=== PATIENT | female | born 1995 | race Caucasian/White ===

== ENCOUNTER → 2017-10-12 | Outpatient (REF) | payer MEDICAID, SELFPAY ==
[2017-10-12 17:29] LABS: BASO # 0.1 10^3/uL (0.0-0.2); BASO % 0.6 % (0.0-1.0); EOS # 0.2 10^3/uL (0.0-0.50); EOS % 1.7 % (0.0-3.0); HEMATOCRIT 43.2 % (36.0-47.0); HEMOGLOBIN 14.1 g/dl (12.0-15.5); IMMATURE GRANULOCYTE % 0.4 % (0-3.0); LYMPH # 2.8 10^3/uL (1.5-6.5); MEAN CORPUSCULAR HGB CONC 32.6 g/dl (32.0-36.5); MEAN CORPUSCULAR VOLUME 88.7 fl (80.0-96.0); MONO # 0.8 10^3/uL (0.0-0.8); MONO % 7.8 % (0.0-5.0); NEUTROPHILS # 6.5 10^3/uL (1.8-7.7); NEUTROPHILS % 62.5 % (36.0-66.0); PLATELET COUNT, AUTOMATED 363 10^3/uL (150-450); RED BLOOD COUNT 4.87 10^6/uL (4.00-5.40); RED CELL DISTRIBUTION WIDTH 12.5 % (11.5-14.5); WHITE BLOOD COUNT 10.5 10^3/uL (4.0-10.0)
[2017-10-12 18:25] LABS: ALBUMIN 3.6 GM/DL (3.2-5.2); ALBUMIN/GLOBULIN RATIO 0.95 (1.00-1.93); ALKALINE PHOSPHATASE 105 U/L (45-117); ALT/SGPT 34 U/L (12-78); ANION GAP 6 MEQ/L (8-16); AST/SGOT 40 U/L (7-37); BILIRUBIN,TOTAL 0.3 MG/DL (0.2-1.0); BLOOD UREA NITROGEN 13 MG/DL (7-18); CALCIUM LEVEL 9.5 MG/DL (8.5-10.1); CARBON DIOXIDE LEVEL 28 MEQ/L (21-32); CHLORIDE LEVEL 107 MEQ/L (98-107); CREATININE FOR GFR 0.83 MG/DL (0.55-1.30); GLOMERULAR FILTRATION RATE > 60.0 (>60); GLUCOSE, FASTING 60 MG/DL (70-100); LIPASE 131 U/L (73-393); POTASSIUM SERUM 4.5 MEQ/L (3.5-5.1); SODIUM LEVEL 141 MEQ/L (136-145); TOTAL PROTEIN 7.4 GM/DL (6.4-8.2)
== END ==
LOC: M LAB REF 16:58
DX: R10.11 Right upper quadrant pain (principal)
CPT/HCPCS: 83690

== ENCOUNTER → 2017-10-19 | Outpatient (CLI) | payer MEDICAID | LOC: M RAD 14:32 | DX: N83.10 Corpus luteum cyst of ovary, unspecified side (principal) | CPT/HCPCS: 76856 ==

== ENCOUNTER → 2017-11-30 | Outpatient (CLI) | payer OTHER ==
[2017-11-30 19:09] LABS: LUTEINIZING HORMONE 3.7 mIU/mL; PROLACTIN 11.2 NG/ML
[2017-11-30 19:09] LABS: PROGESTERONE 1.2 NG/ML
[2017-11-30 19:10] LABS: FOLLICLE STIMULATING HORMONE 3.8 mIU/mL; FREE T4 0.81 NG/DL (0.76-1.46)
[2017-11-30 21:22] LABS: CHLAMYDIA DNA AMPLIFICATION NEGATIVE (NEGATIVE); GC DNA AMPLIFICATION POSITIVE (NEGATIVE)
== END ==
LOC: M SMT 13:56
DX: N93.8 Other specified abnormal uterine and vaginal bleeding (principal)
CPT/HCPCS: 83001

== ENCOUNTER → 2017-12-28 | Outpatient (REF) | payer OTHER, MEDICAID ==
[2017-12-28 19:12] LABS: CHLAMYDIA DNA AMPLIFICATION NEGATIVE (NEGATIVE); GC DNA AMPLIFICATION NEGATIVE (NEGATIVE)
== END ==
LOC: M LAB REF 17:21
DX: A64 Unspecified sexually transmitted disease (principal)
CPT/HCPCS: 87591

== ENCOUNTER 2018-01-21 03:54 | Emergency (ER) | payer OTHER, MEDICAID | END 2018-01-21 05:31 | disposition left against medical advice (07) | LOC: M ED 03:54 | DX: M79.609 Pain in unspecified limb (principal); Z53.21 Procedure and treatment not carried out due to patient leaving prior to being seen by health care provider ==